=== PATIENT | female | born 1965 | race Two or more races ===

== ENCOUNTER → 2025-02-18 | Outpatient (CLI) | payer MEDICAID, SELFPAY ==
--- NOTE | 2025-02-18 12:20 | XR_ITS ---
Examination: Bone densitometry Date and time of exam:February 18, 2025 1212 hours INDICATIONS: Menopause age 55 Technique: Lumbar spine and hip total bone mineralization values of an calculated. Peak reference and age match control results have been displayed. Findings: Lumbar spine total bone mineralization is1.576 gm/cm2. This is 4.8 standard deviations above peak reference. This is 6.4 standard deviations above age-matched controls. Hip total bone mineralization is 1.464 gm/cm2 This is 3.7 standard deviations above peak reference. This is 4.7 standard deviations above age-matched controls Impression: There is normal mineralization based on lumbar spine measurements. There is normal mineralization based on hip measurements
== END | disposition home or self-care (01) ==
LOC: CDIM 11:31
PROVIDERS: Referring Provider Nurse Practitioner Family; Visit Provider Nurse Practitioner Family
DX: M81.0 Age-related osteoporosis without current pathological fracture (principal)
CPT/HCPCS: 77080